=== PATIENT | female | born 1940 | race Caucasian/White ===

== ENCOUNTER → 2016-12-14 | Outpatient (CLI) | payer OTHER ==
[2016-12-14 13:59] LABS: ESTIMATED AVERAGE GLUCOSE 140 mg/dl; HA1C FLAG Normal (Normal)
[2016-12-14 14:00] LABS: ALT/SGPT 37 U/L (12-78); BLOOD UREA NITROGEN 18 mg/dl (7-18); BUN/CREATININE RATIO 19.3 (10-20); CALCIUM 9.5 mg/dl (8.5-10.1); CARBON DIOXIDE 29 mmol/L (21-32); CHLORIDE 101 mmol/L (98-107); CHOLESTEROL 167 mg/dl (0-200); CREATININE 0.92 mg/dl (0.60-1.20); GLUCOSE 128 mg/dl (70-99); SODIUM 136 mmol/L (136-145); TRIGLYCERIDES 329 mg/dl (0-150); VERY LOW DENSITY LIPOPROT CALC 66 mg/dl
[2016-12-14 14:02] LABS: AST/SGOT 40 U/L (15-37); HDL CHOLESTEROL 21 mg/dl; LDL CHOLESTEROL CALCULATED 80 mg/dl
== END | disposition home or self-care (01) ==
LOC: C.LABMFLN 08:24
PROVIDERS: ATTEND Family Medicine
DX: E11.9 Type 2 diabetes mellitus without complications (principal); E78.2 Mixed hyperlipidemia; I10 Essential (primary) hypertension

== ENCOUNTER → 2017-03-26 | Outpatient (CLI) | payer OTHER ==
[2017-03-26 13:50] LABS: ESTIMATED AVERAGE GLUCOSE 163 mg/dl; HA1C FLAG Normal (Normal)
[2017-03-26 14:07] LABS: BLOOD UREA NITROGEN 19 mg/dl (7-18); BUN/CREATININE RATIO 18.9 (10-20); CARBON DIOXIDE 27 mmol/L (21-32); CHLORIDE 98 mmol/L (98-107); GLUCOSE 178 mg/dl (70-99); POTASSIUM 3.4 mmol/L (3.5-5.1); SODIUM 136 mmol/L (136-145)
[2017-03-26 14:51] LABS: CALCIUM 9.8 mg/dl (8.5-10.1)
[2017-03-26 14:54] LABS: RATIO 398.5 mcg/mg (0-30.0)
== END | disposition home or self-care (01) ==
LOC: C.LABMFLN 09:14
PROVIDERS: ATTEND Family Medicine
DX: E11.9 Type 2 diabetes mellitus without complications (principal)

== ENCOUNTER → 2017-03-30 | Outpatient (CLI) | payer OTHER ==
[2017-03-30 18:24] LABS: LYME DISEASE AB IGG NEG (NEG); LYME DISEASE AB IGM NEG (NEG)
[2017-03-30 18:40] LABS: BLOOD UREA NITROGEN 27 mg/dl (7-18); BUN/CREATININE RATIO 24.9 (10-20); CARBON DIOXIDE 25 mmol/L (21-32); CHLORIDE 102 mmol/L (98-107); GLUCOSE 116 mg/dl (70-99); POTASSIUM 4.1 mmol/L (3.5-5.1); SODIUM 140 mmol/L (136-145)
[2017-03-30 19:06] LABS: CALCIUM 9.9 mg/dl (8.5-10.1)
== END | disposition home or self-care (01) ==
LOC: C.LABMFLN 13:56
PROVIDERS: ATTEND Family Medicine
DX: L03.90 Cellulitis, unspecified (principal); I10 Essential (primary) hypertension

== ENCOUNTER → 2017-04-13 | Outpatient (CLI) | payer OTHER ==
[2017-04-13 18:13] LABS: BLOOD UREA NITROGEN 22 mg/dl (7-18); BUN/CREATININE RATIO 19.7 (10-20); CALCIUM 9.3 mg/dl (8.5-10.1); CARBON DIOXIDE 27 mmol/L (21-32); CHLORIDE 107 mmol/L (98-107); GLUCOSE 111 mg/dl (70-99); POTASSIUM 4.3 mmol/L (3.5-5.1); SODIUM 141 mmol/L (136-145)
== END | disposition home or self-care (01) ==
LOC: C.LABMFLN 12:38
PROVIDERS: ATTEND Family Medicine
DX: I10 Essential (primary) hypertension (principal)

== ENCOUNTER → 2017-06-03 | Outpatient (CLI) | payer OTHER ==
[2017-06-03 18:03] LABS: URIC ACID 4.7 mg/dl (2.6-7.2)
[2017-06-03 18:31] LABS: LYME DISEASE AB IGG NEG (NEG); LYME DISEASE AB IGM NEG (NEG)
== END | disposition home or self-care (01) ==
LOC: C.LABMFLN 15:52
PROVIDERS: ATTEND Family Medicine
DX: M19.90 Unspecified osteoarthritis, unspecified site (principal)

== ENCOUNTER → 2017-07-05 | Outpatient (CLI) | payer OTHER ==
[2017-07-05 14:04] LABS: ALT/SGPT 29 U/L (12-78); AST/SGOT 32 U/L (15-37); BLOOD UREA NITROGEN 17 mg/dl (7-18); BUN/CREATININE RATIO 17.8 (10-20); CALCIUM 9.3 mg/dl (8.5-10.1); CARBON DIOXIDE 26 mmol/L (21-32); CHLORIDE 105 mmol/L (98-107); CREATININE 0.95 mg/dl (0.60-1.20); GLUCOSE 140 mg/dl (70-99); SODIUM 139 mmol/L (136-145)
[2017-07-05 14:07] LABS: ALKALINE PHOSPHATASE 53 U/L (45-117); CHOLESTEROL 155 mg/dl (0-200); CHOLESTEROL/HDL RATIO 7.8; HDL CHOLESTEROL 20 mg/dl; LDL CHOLESTEROL CALCULATED 75 mg/dl; TRIGLYCERIDES 302 mg/dl (0-150); VERY LOW DENSITY LIPOPROT CALC 60 mg/dl
[2017-07-06 05:55] LABS: ESTIMATED AVERAGE GLUCOSE 143 mg/dl; HA1C FLAG Normal (Normal)
== END | disposition home or self-care (01) ==
LOC: C.LABMFLN 09:47
PROVIDERS: ATTEND Family Medicine
DX: E11.9 Type 2 diabetes mellitus without complications (principal); I10 Essential (primary) hypertension

== ENCOUNTER → 2017-11-17 | Outpatient (CLI) | payer OTHER ==
[2017-11-17 13:15] LABS: HEMOGLOBIN A1C 6.1 % (4.5-5.6)
[2017-11-17 13:21] LABS: ALT/SGPT 33 U/L (12-78); AST/SGOT 26 U/L (15-37); BLOOD UREA NITROGEN 26 mg/dl (7-18); CALCIUM 8.9 mg/dl (8.5-10.1); CARBON DIOXIDE 26 mmol/L (21-32); CREATININE 1.09 mg/dl (0.60-1.20); GLUCOSE 122 mg/dl (70-99); POTASSIUM 3.6 mmol/L (3.5-5.1); SODIUM 135 mmol/L (136-145)
[2017-11-17 13:21] LABS: CREATININE RANDOM URINE 71.9 mg/dl
[2017-11-17 13:24] LABS: ALKALINE PHOSPHATASE 35 U/L (45-117); CHOLESTEROL 175 mg/dl (0-200); LDL CHOLESTEROL CALCULATED 90 mg/dl; TOTAL PROTEIN 7.3 gm/dl (6.4-8.2)
== END | disposition home or self-care (01) ==
LOC: C.LABMFLN 09:48
PROVIDERS: ATTEND Family Medicine
DX: E11.9 Type 2 diabetes mellitus without complications (principal); I10 Essential (primary) hypertension; E78.00 Pure hypercholesterolemia, unspecified

== ENCOUNTER → 2017-11-18 | Outpatient (CLI) | payer OTHER | END | disposition home or self-care (01) | LOC: C.LABMFLN 13:34 | PROVIDERS: ATTEND Family Medicine | DX: G62.9 Polyneuropathy, unspecified (principal) ==

== ENCOUNTER → 2018-06-08 | Outpatient (CLI) | payer OTHER ==
[2018-06-08 18:01] LABS: HEMATOCRIT 36.7 % (37-47); HEMOGLOBIN 10.5 g/dL (12.0-16.0); MEAN CELL VOLUME 86.6 fL (80-100); MEAN CORPUSCULAR HEMOGLOBIN 24.8 pg (25-34); MEAN CORPUSCULAR HGB CONC 28.6 g/dl (32-36); RED CELL DISTRIBUTION WIDTH CV 21.7 % (11.5-14.5); RED CELL DISTRIBUTION WIDTH SD 69.4 fL (36.4-46.3); WHITE BLOOD COUNT 7.18 K/uL (4.8-10.8)
[2018-06-08 18:28] LABS: BASO % 0.4 %; BASO ABS # 0.03 K/uL (0-0.2); EOS ABS # 0.07 K/uL (0-0.5); IG# 0.01 K/uL (0.00-0.02); LYMPH % 19.6 %; LYMPH ABS # 1.41 K/uL (1.2-3.4); MEAN PLATELET VOLUME 11.5 fL (7.4-10.4); MONO % 5.4 %; MONO ABS # 0.39 K/uL (0.11-0.59); NEUT % 73.5 %; NEUT ABS # 5.27 K/uL (1.4-6.5); PLATELET COUNT 423 K/uL (130-400)
[2018-06-08 18:46] LABS: ALBUMIN 3.9 gm/dl (3.4-5.0); ALKALINE PHOSPHATASE 54 U/L (45-117); ALT/SGPT 25 U/L (12-78); AST/SGOT 35 U/L (15-37); CREATININE 1.01 mg/dl (0.60-1.20); TOTAL PROTEIN 7.8 gm/dl (6.4-8.2)
== END | disposition home or self-care (01) ==
LOC: C.LABMFLN 14:33
PROVIDERS: ATTEND Internal Medicine Rheumatology
DX: K21.9 Gastro-esophageal reflux disease without esophagitis (principal); M05.741 Rheumatoid arthritis with rheumatoid factor of right hand without organ or systems involvement; M05.742 Rheumatoid arthritis with rheumatoid factor of left hand without organ or systems involvement; Z79.899 Other long term (current) drug therapy